=== PATIENT | male | born 1960 | race Caucasian/White ===

== ENCOUNTER → 2024-04-09 06:37 | Outpatient (REF) | payer BC, SELFPAY ==
[2024-04-11 12:48] LABS: PSA, Ultrasensitive <0.01 ng/mL (0.00-4.00)
== END ==
LOC: REG 06:37
PROVIDERS: ATTENDING PHYSICIAN Specialist; FAMILY PHYSICIAN Family Medicine
DX: C61 Malignant neoplasm of prostate (principal); N20.0 Calculus of kidney
CPT/HCPCS: 36415; 74018; 84153

== ENCOUNTER → 2025-04-16 06:35 | Outpatient (REF) | payer BC, SELFPAY | LOC: RAD 06:35 | PROVIDERS: ATTENDING PHYSICIAN Specialist; FAMILY PHYSICIAN Family Medicine | DX: N20.0 Calculus of kidney (principal) | CPT/HCPCS: 74018 ==